=== PATIENT | male | born 1980 | race Hispanic/Latino ===

== ENCOUNTER 2021-06-27 14:17 | Emergency (ER) | payer SELFPAY ==
[2021-06-27] MEDS ORDERED: KETOROLAC 30 MG/ML INJ ONE (15:24)
--- NOTE | 2021-06-27 16:45 | RAD REPORT ---
EXAM DESCRIPTION: RAD - Shoulder Left 2 View - 06/27/2021 4:09 pm CLINICAL HISTORY: shoulder pain COMPARISON: No comparisons FINDINGS/IMPRESSION: No acute fracture. No malalignment. No significant focal degenerative changes.
--- NOTE | 2021-06-27 16:54 | ER ---
Nurse's Notes [facility] Name: Joesph Wall Jr Age: 40 yrs Sex: Male : 1980 Arrival Date: 06/27/2021 Time: 14:20 Bed 11 Private MD: Diagnosis: Sprain of shoulder joint Presentation: 06/27 14:53 Chief complaint: Patient states: I fell form the bed and landed on my left shoulder. I jb4 am having trouble raising my arm over my head. Coronavirus screen: At this time, the client does not indicate any symptoms associated with coronavirus-19. Ebola Screen: No symptoms or risks identified at this time. Initial Sepsis Screen: Does the patient meet any 2 criteria? HR > 90 bpm. Yes Does the patient have a suspected source of infection? No. Patient's initial sepsis screen is negative. Risk Assessment: Do you want to hurt yourself or someone else? Patient reports no desire to harm self or others. Onset of symptoms was June 27, 2021. Transition of care: patient was not received from another setting of care. 14:53 Method Of Arrival: Ambulatory jb4 14:53 Acuity: JOHN 4 jb4 Historical: - Allergies: 14:56 No Known Allergies; jb4 - Home Meds: 14:56 None [Active]; jb4 - PMHx: 14:56 None; jb4 - PSHx: 14:56 None; jb4 - Immunization history:: Adult Immunizations up to date, Client reports having NOT received the Covid vaccine. - Social history:: Smoking status: Patient reports the use of cigarette tobacco products, 1 pack per week. Screenin:17 Abuse screen: Denies threats or abuse. Nutritional screening: No deficits noted. jb4 Tuberculosis screening: No symptoms or risk factors identified. Fall Risk None identified. Assessment: 15:17 General: Appears in no apparent distress. uncomfortable, Behavior is calm, cooperative, jb4 appropriate for age. Pain: Complains of pain in left shoulder Pain does not radiate. Pain currently is 9 out of 10 on a pain scale. Quality of pain is described as aching, throbbing. Neuro: Level of Consciousness is awake, alert, obeys commands, Oriented to person, place, time, situation. Cardiovascular: Patient's skin is warm and dry. Respiratory: Airway is patent Respiratory effort is even, unlabored, Respiratory pattern is regular, symmetrical. GI: No signs and/or symptoms were reported involving the gastrointestinal system. : No signs and/or symptoms were reported regarding the genitourinary system. EENT: No signs and/or symptoms were reported regarding the EENT system. Derm: Skin is intact, Skin is pink, warm \T\ dry. Musculoskeletal: Circulation, motion, and sensation intact. Range of motion: limited in left shoulder. 16:02 Reassessment: Patient appears in no apparent distress at this time. Patient and/or jb4 family updated on plan of care and expected duration. Pain level reassessed. Patient is alert, oriented x 3, equal unlabored respirations, skin warm/dry/pink. Vital Signs: 14:53 BP 126 / 77; Pulse 93; Resp 16; Temp 98.4(TE); Pulse Ox 98% on R/A; Weight 68.04 kg jb4 (R); Height 5 ft. 9 in. (175.26 cm) (R); Pain 9/10; 14:53 Body Mass Index 22.15 (68.04 kg, 175.26 cm) jb4 ED Course: 14:20 Patient arrived in ED. am2 14:34 Jasbir Barclay PA is PHCP. [facility] 14:34 Jori Nicolas MD is Attending Physician. [facility] 14:56 Triage completed. jb4 14:56 Arm band placed on right wrist. jb4 15:17 Patient has correct armband on for positive identification. Bed in low position. Call [facility] light in reach. Side rails up X 1. 15:52 Angella Gillette RN is Primary Nurse. jl7 16:11 Shoulder Left (2 View) XRAY In Process Unspecified. EDMS 17:39 No provider procedures requiring assistance completed. Patient did not have IV access jl7 during this emergency room visit. Sling applied to left arm. Administered Medications: 15:27 Drug: Ketorolac 30 mg Route: IM; Site: right deltoid; jb4 16:00 Follow up: Response: No adverse reaction; Pain is decreased jl7 Outcome: 16:54 Discharge ordered by . jm 17:39 Discharged to home ambulatory, with family. jl7 17:39 Condition: stable 17:39 Discharge instructions given to patient, Instructed on discharge instructions, follow up and referral plans. medication usage, Demonstrated understanding of instructions, follow-up care, medications, Prescriptions given X 2. 17:43 Patient left the ED. jl7 Signatures: Dispatcher [employer] EDMS Jasbir Barclay PA PA jmm Bryson, James, RN RN jb4 Angella Gillette RN RN jl7 Sabine Raphael
--- NOTE | 2021-06-27 16:54 | EDPHYS ---
Physician Documentation [facility] Name: Joesph Wall Jr Age: 40 yrs Sex: Male : 1980 Arrival Date: 06/27/2021 Time: 14:20 Bed 11 Private MD: ED Physician Jori Nicolas Historical: - Allergies: 06/27 14:56 No Known Allergies; jb4 - Home Meds: 14:56 None [Active]; jb4 - PMHx: 14:56 None; jb4 - PSHx: 14:56 None; jb4 - Immunization history:: Adult Immunizations up to date, Client reports having NOT received the Covid vaccine. - Social history:: Smoking status: Patient reports the use of cigarette tobacco products, 1 pack per week. Vital Signs: 14:53 BP 126 / 77; Pulse 93; Resp 16; Temp 98.4(TE); Pulse Ox 98% on R/A; Weight 68.04 kg jb4 (R); Height 5 ft. 9 in. (175.26 cm) (R); Pain 9/10; 14:53 Body Mass Index 22.15 (68.04 kg, 175.26 cm) jb4 MDM: 15:02 Patient medically screened. [facility] 16:52 Data reviewed: vital signs, nurses notes. Counseling: I had a detailed discussion with barbara the patient and/or guardian regarding: the historical points, exam findings, and any diagnostic results supporting the discharge/admit diagnosis, radiology results, the need for outpatient follow up, to return to the emergency department if symptoms worsen or persist or if there are any questions or concerns that arise at home. 06/27 15:09 Order name: Shoulder Left (2 View) XRAY; Complete Time: 16:48 [facility] 06/27 16:48 Order name: Sling; Complete Time: 17:43 [facility] Administered Medications: 15:27 Drug: Ketorolac 30 mg Route: IM; Site: right deltoid; jb4 16:00 Follow up: Response: No adverse reaction; Pain is decreased jl7 Disposition Summary: 06/27/21 16:54 Discharge Ordered Location: Home [facility] Condition: Stable [facility] Diagnosis - Sprain of shoulder joint [facility] Followup: [facility] - With: Private Physician - When: 2 - 3 days - Reason: Recheck today's complaints, Continuance of care, Re-evaluation by your physician Discharge Instructions: - Discharge Summary Sheet jm - Shoulder Sprain [facility] Forms: - Medication Reconciliation Form [facility] - Thank You Letter yolanda - Antibiotic Education [facility] - Prescription Opioid Use [facility] Prescriptions: - Diclofenac Sodium 75 mg Oral Tablet Sustained Release - take 1 tablet by ORAL route 2 times per day; 30 tablet; Refills: 0, Product [facility] Selection Permitted - orphenadrine citrate 100 mg Oral Tablet Sustained Release - take 1 tablet by ORAL route 2 times per day As needed; 20 tablet; Refills: 0, [facility] Product Selection Permitted Addendum: 07/03/2021 07:57 Co-signature as Attending Physician, Jori Nicolas MD I agree with the assessment and c haque plan of care. Signatures: Dispatcher [employer] Jori Serna MD MD cha Mickail, Joel, PA PA jmm Bryson, James RN RN jb4 Angella Gillette RN jl7
[2021-06-27 17:54] VITALS: BP 126/77; TEMP 98.4; O2SAT 98
== END 2021-06-27 17:43 | disposition home or self-care (01) ==
LOC: ER 14:17
DX: S43.402A Unspecified sprain of left shoulder joint, initial encounter (principal); W06.XXXA Fall from bed, initial encounter; Z72.0 Tobacco use
CPT/HCPCS: 96372; 99284

== ENCOUNTER 2023-07-24 13:38 | Emergency (ER) | payer SELFPAY ==
--- OUTSIDE RECORDS SUMMARY | 2023-07-24 13:42 | XMS REPORT | Continuity of Care Document ---
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
[2023-07-24] MEDS ORDERED: KETOROLAC 30 MG/ML INJ ONE (14:13)
[2023-07-24 14:44] LABS: Absolute Basophils 0.1 K/uL (0-0.5); Absolute Eosinophils 0.2 K/uL (0-0.5); Absolute Monocytes 0.9 K/uL (0.1-1.3); Absolute Neutrophil 10.8 K/uL (1.8-8.0); Basophils % 0.5 % (0-1.3); Eosinophils % 1.4 % (0-4.4); Hematocrit 41.3 % (39.6-49.0); Hemoglobin 13.9 g/dL (13.6-17.9); Lymphocytes % 7.8 % (15.3-44.8); MCH 30.4 pg (27.0-35.0); MCHC 33.7 g/dL (32.0-36.0); MCV 90.1 fL (80-100); MPV 8.6 fL (7.6-11.3); Monocytes % 6.8 % (3.3-12.3); Neutrophils % 83.5 % (41.7-73.7); Platelets 265 thou/uL (152-406); RBC Red Blood Cell Count 4.58 M/uL (4.33-5.43); Red Cell Distribution Width 14.2 % (12.1-15.2)
[2023-07-24 15:00] LABS: ALT/SGPT 16 U/L (16-61); Albumin 3.5 g/dL (3.4-5.0); Albumin/Globulin Ratio 0.8 (1.1-1.8); Alkaline Phosphatase 94 U/L (45-117); Anion Gap 7.5 mEq/L (5.0-15.0); BUN Blood Urea Nitrogen 13 mg/dL (7-18); Bicarbonate 29 mEq/L (21-32); Bilirubin Total 0.8 mg/dL (0.2-1.0); Globulin 4.5 g/dL (2.3-3.5); Glomerular Filtration Rate 90 ml/min (=/>90); Glucose Level 100 mg/dL (74-106); Potassium 3.5 mEq/L (3.5-5.1); Sodium Level 137 mEq/L (136-145)
[2023-07-24 15:02] LABS: AST/SGOT < 10 U/L (15-37)
[2023-07-24] MEDS ORDERED: CLINDAMYCIN 900MG/D5W 900 MG/50 ML IVPB IV ONE (15:32)
--- NOTE | 2023-07-24 16:15 | RAD REPORT ---
EXAM DESCRIPTION: US - Extrem Venous W Compress Aniceto - 07/24/2023 3:33 pm CLINICAL HISTORY: Pain, swelling COMPARISON: None. TECHNIQUE: Real-time sonographic evaluation of the right lower extremity deep venous system was perf ormed. FINDINGS: Normal compressibility, flow augmentation, phasic flow and spontaneous flow is identified in the right lower extremity deep venous system. No intraluminal filling defects seen. IMPRESSION: No DVT in the right lower extremity.
--- NOTE | 2023-07-24 16:18 | RAD REPORT ---
EXAM DESCRIPTION: US - Lower Extremity Arterial Bilat - 07/24/2023 3:34 pm CLINICAL HISTORY: Pain;Swelling COMPARISON: No comparisons TECHNIQUE: Bilateral lower extremity arterial Doppler examination was performed with nishant palmer FINDINGS: Triphasic waveforms are seen throughout both lower extremity arterial systems to the level of the dorsalis pedis arteries. IMPRESSION: No evidence of significant peripheral vascular disease.
--- NOTE | 2023-07-24 16:41 | EDPHYS ---
Physician Documentation [facility] Name: Joesph Wall Age: 42 yrs Sex: Male : 1980 Arrival Date: 07/24/2023 Time: 13:38 Bed 15 Private MD: ED Physician Laron Humphreys HPI: 07/23 14:15 This 42 yrs old Male presents to ER via Ambulatory with complaints of Leg cp Swelling, Skin Problem, Feet Swelling. 14:15 the patient presents with a swollen area of the right foot and left foot. Description: cp erythematous, swollen, blistering of skin. Onset: The symptoms/episode began/occurred 3 day(s) ago. Possible cause(s): wears work boots 12 plus hours daily. Associated signs and symptoms: Pertinent negatives: fever. 14:15 Severity of symptoms: in the emergency department the symptoms are unchanged, despite cp home interventions. Historical: - Allergies: 13:52 No Known Allergies; iw - Home Meds: 13:52 None [Active]; iw - PMHx: 13:52 None; iw - PSHx: 13:52 None; iw - Immunization history:: Adult Immunizations not up to date. - Infectious Disease History:: Denies. - Social history:: Smoking status: Patient reports the use of cigarette tobacco products. ROS: 14:20 Constitutional: Negative for body aches, chills, fever, poor PO intake, cp 14:20 Eyes: Negative for injury, pain, redness, and discharge, cp 14:20 ENT: Negative for drainage from ear(s), ear pain, sore throat, difficulty swallowing, difficulty handling secretions, 14:20 Cardiovascular: Negative for chest pain, 14:20 Respiratory: Negative for cough, shortness of breath, wheezing, 14:20 Abdomen/GI: Negative for abdominal pain, nausea, vomiting, and diarrhea, 14:20 Skin: Positive for erythema, swelling, of the right foot and left foot, blistering of skin, 14:20 All other systems are negative, Exam: 14:25 Constitutional: The patient appears in no acute distress, alert, awake, non-toxic, well cp developed, well nourished, uncomfortable, 14:25 Head/Face: Normocephalic, atraumatic. cp 14:25 Eyes: Periorbital structures: appear normal, Conjunctiva: normal, no exudate, no injection, Sclera: no appreciated abnormality, Lids and lashes: appear normal, bilaterally, 14:25 ENT: External ear(s): are unremarkable, Nose: is normal, Mouth: Lips: moist, Oral mucosa: pink and intact, moist, Posterior pharynx: Airway: no evidence of obstruction, patent, 14:25 Chest/axilla: Inspection: normal, 14:25 Cardiovascular: Rate: normal, Rhythm: regular, 14:25 Respiratory: the patient does not display signs of respiratory distress, Respirations: normal, no use of accessory muscles, no retractions, labored breathing, is not present, Breath sounds: are clear throughout, no decreased breath sounds, no stridor, no wheezing, 14:25 Abdomen/GI: Inspection: abdomen appears normal, 14:25 Back: pain, is absent, ROM is normal, 14:25 Skin: cellulitis, that is moderate, on the right foot and left foot, noted erythema, blistering of skin between toes, swelling, enlarged tender groin lymph nodes, 14:25 Neuro: Orientation: to person, place \T\ time. Mentation: is normal, Motor: moves all fours, strength is normal, 14:35 ECG was reviewed by the Attending Physician. Vital Signs: 13:49 BP 123 / 81; Pulse 94; Resp 16; Temp 98.2; Pulse Ox 100% on R/A; Weight 70.31 kg; iw Height 5 ft. 8 in. ; Pain 8/10; 15:19 BP 115 / 70; Pulse 91; Resp 18; Pulse Ox 99% on R/A; rs5 17:01 BP 117 / 71; Pulse 88; Resp 18; Pulse Ox 99% on R/A; rs5 13:49 Body Mass Index 23.57 (70.31 kg, 172.72 cm) iw 13:49 Pain Scale: Adult iw MDM: 13:54 Patient medically screened. cp 15:00 Differential diagnosis: abscess, cellulitis, dvt, diabetes mellitus, PAD. 16:40 Data reviewed: vital signs, nurses notes, lab test result(s), EKG, radiologic studies, cp ultrasound, and as a result, I will discharge patient. 16:40 I considered the following discharge prescriptions or medication management in the emergency department Medications were administered in the Emergency Department. See MAR. Counseling: I had a detailed discussion with the patient and/or guardian regarding the historical points, exam findings, and any diagnostic results supporting the discharge/admit diagnosis, lab results, radiology results, the need for outpatient follow up, a family practitioner, to return to the emergency department if symptoms worsen or persist or if there are any questions or concerns that arise at home. Response to treatment: the patient's symptoms have mildly improved after treatment, and as a result, I will discharge patient. 07/23 14:08 Order name: CBC with Diff; Complete Time: 15:02 cp 07/23 15:02 Interpretation: Normal except: WBC 12.90; HENRRY% 83.5; LYM% 7.8; NEUT A 10.8. cp 07/23 14:08 Order name: CMP; Complete Time: 15:06 cp 07/23 15:06 Interpretation: Normal except. 07/23 14:08 Order name: Lactate w/ 2H reflex if indic.; Complete Time: 15:06 cp 07/23 15:06 Interpretation: Reviewed. 07/23 14:08 Order name: Wound Culture 07/23 14:38 Order name: Glucose, Ancillary Testing; Complete Time: 15:02 EDMS 07/23 14:08 Order name: US Extremity Venous W Compression Aniceto; Complete Time: 16:33 cp 07/23 16:34 Interpretation: Report reviewed. 07/23 14:08 Order name: US LE Arterial Bilateral; Complete Time: 16:33 cp 07/23 16:34 Interpretation: Report reviewed. 07/23 14:08 Order name: Accucheck; Complete Time: 14:35 cp 07/23 14:08 Order name: Cardiac monitoring; Complete Time: 14:35 cp 07/23 14:08 Order name: IV Saline Lock - Large Bore; Complete Time: 14:50 cp 12 14:08 Order name: Labs collected and sent; Complete Time: 14:50 cp 07/23 14:08 Order name: O2 Per Protocol; Complete Time: 14:50 cp 12 14:08 Order name: O2 Sat Monitoring; Complete Time: 14:50 cp 07/23 14:08 Order name: Vital Signs; Complete Time: 14:51 cp EC:35 Rate is 67 beats/min. Rhythm is regular. NE interval is normal. QRS interval is normal. cp QT interval is normal. T waves are Inverted in lead aVR. Interpreted by me. Reviewed by me. Administered Medications: 14:20 Drug: Ketorolac IVP 15 mg IVP once Route: IVP; Site: right antecubital; rs5 14:40 Follow up: Response: No adverse reaction; Pain is decreased rs5 15:20 Drug: Clindamycin IVPB 900 mg IVPB once over 30 mins; (mix in 50 mL) Route: IVPB; rs5 Infused Over: 30 mins; Site: right antecubital; 15:40 Follow up: Response: No adverse reaction rs5 15:52 Follow up: Response: No adverse reaction; IV Status: Completed infusion rs5 Disposition Summary: 07/24/23 16:41 Discharge Ordered Notes: Location: Home cp Problem: new cp Symptoms: have improved cp Condition: Stable cp Diagnosis - Cellulitis of right lower limb cp - Cellulitis of left lower limb cp Followup: cp - With: Private Physician - When: 2 - 3 days - Reason: Recheck today's complaints Discharge Instructions: - Discharge Summary Sheet cp - Cellulitis, Adult cp - Form - Excuse from Work, School, or Physical Activity cp Forms: - Medication Reconciliation Form cp - Antibiotic Education cp - Prescription Opioid Use cp - Patient Portal Instructions cp - Leadership Thank You Letter cp Prescriptions: - Clindamycin HCl 300 mg Oral Capsule - take 1 capsule ORAL route every 6 hours for 10 days; 40 capsule; Refills: 0, cp Product Selection Permitted - Clotrimazole 1 % Topical cream - Apply to affected area 1 application TOPICAL route every 12 hours for 7 days; cp 45 gram; Refills: 0, Product Selection Permitted - Ibuprofen 800 mg Oral Tablet - take 1 tablet ORAL route every 8 hours As needed take with food; 30 tablet; cp Refills: 0, Product Selection Permitted - Bactrim DS 800-160 mg Oral Tablet - take 1 tablet ORAL route every 12 hours for 10 days; 20 tablet; Refills: 0, cp Product Selection Permitted Signatures: Dispatcher [employer] Dianne Ash RN RN Jori Hays PA PA cp Tomás Londono RN RN rs5 Corrections: (The following items were deleted from the chart) 14:09 14:09 CBC+H.LAB.BRZ ordered. EDOK EDMS 14:09 14:09 COMPREHENSIVE METABOLIC PANEL+C.LAB.BRZ ordered. EDMS EDMS 14: 14:09 LACTATE+C.LAB.BRZ ordered. EDMS EDMS 14: 14:09 Wound Culture+BA.LAB.BRZ ordered. EDMS EDMS
--- NOTE | 2023-07-24 16:41 | ER ---
Nurse's Notes [facility] Name: Joesph Wall Age: 42 yrs Sex: Male : 1980 Arrival Date: 07/24/2023 Time: 13:38 Bed 15 Private MD: Diagnosis: Cellulitis of right lower limb;Cellulitis of left lower limb Presentation: 07/23 13:49 Chief complaint: Patient states: right foot has wounds and wounds between toes X 3 days iw , the toes have been purple since , also has the same issue on last three toes of left toe, I also have pain to yaw groin area and there are knots in the groin that are tender. Coronavirus screen: Client presents with at least one sign or symptom that may indicate coronavirus-19. At this time, the client does not indicate any symptoms associated with coronavirus-19. Ebola Screen: Patient negative for fever greater than or equal to 101.5 degrees Fahrenheit, and additional compatible Ebola Virus Disease symptoms Patient denies exposure to infectious person. Patient denies travel to an Ebola-affected area in the 21 days before illness onset. No symptoms or risks identified at this time. Initial Sepsis Screen: Does the patient meet any 2 criteria? No. Patient's initial sepsis screen is negative. Does the patient have a suspected source of infection?. Risk Assessment: Do you want to hurt yourself or someone else? Patient reports no desire to harm self or others. Onset of symptoms was July 21, 2023. 13:49 Method Of Arrival: Ambulatory iw 13:49 Acuity: JOHN 3 iw Historical: - Allergies: 13:52 No Known Allergies; iw - Home Meds: 13:52 None [Active]; iw - PMHx: 13:52 None; iw - PSHx: 13:52 None; iw - Immunization history:: Adult Immunizations not up to date. - Infectious Disease History:: Denies. - Social history:: Smoking status: Patient reports the use of cigarette tobacco products. Screenin:55 [facility] ED Fall Risk Assessment (Adult) History of falling in the last 3 months, rs5 including since admission No falls in past 3 months (0 pts) Confusion or Disorientation No (0 pts) Intoxicated or Sedated No (0 pts) Impaired Gait Yes (1 pt) Mobility Assist Device Used No (0 pt) Altered Elimination No (0 pt) Score/Fall Risk Level 0 - 2 = Low Risk Oriented to surroundings, Maintained a safe environment, Hourly rounding (assess needs \T\ fall precautionary measures) done. Abuse screen: Denies threats or abuse. Nutritional screening: No deficits noted. Tuberculosis screening: No symptoms or risk factors identified. Assessment: 13:55 General: Appears in no apparent distress. uncomfortable, Behavior is calm, cooperative. rs5 Pain: Complains of pain in feet bilat Pain currently is 7 out of 10 on a pain scale. Quality of pain is described as aching, Is continuous. Neuro: Level of Consciousness is awake, alert, obeys commands, Oriented to person, place, time, situation. Cardiovascular: Patient's skin is warm and dry. Rhythm is regular. Respiratory: Airway is patent Respiratory effort is even, unlabored, Respiratory pattern is regular, symmetrical. GI: Abdomen is round non-distended, Abd is soft and non tender X 4 quads. : No signs and/or symptoms were reported regarding the genitourinary system. 13:55 EENT: No signs and/or symptoms were reported regarding the EENT system. Derm: Skin is rs5 intact, Skin is pink, warm \T\ dry. multiple small wounds noted to bottom of feet bilat. Musculoskeletal: Range of motion: limited in feet bilat. 15:18 Reassessment: Patient and/or family updated on plan of care and expected duration. Pain rs5 level reassessed. Patient is alert, oriented x 3, equal unlabored respirations, skin warm/dry/pink. Patient states feeling better. Patient states symptoms have improved. 16:25 Reassessment: No changes from previously documented assessment. rs5 17:01 Reassessment: No changes from previously documented assessment. rs5 Vital Signs: 13:49 BP 123 / 81; Pulse 94; Resp 16; Temp 98.2; Pulse Ox 100% on R/A; Weight 70.31 kg; iw Height 5 ft. 8 in. ; Pain 8/10; 15:19 BP 115 / 70; Pulse 91; Resp 18; Pulse Ox 99% on R/A; rs5 17:01 BP 117 / 71; Pulse 88; Resp 18; Pulse Ox 99% on R/A; rs5 13:49 Body Mass Index 23.57 (70.31 kg, 172.72 cm) iw 13:49 Pain Scale: Adult iw ED Course: 13:43 Patient arrived in ED. im 13:43 Jori Abarca PA is PHCP. cp 13:43 Laron Humphreys MD is Attending Physician. cp 13:52 Triage completed. iw 13:53 Arm band placed on. iw 13:55 Patient has correct armband on for positive identification. Bed in low position. Call rs5 light in reach. Side rails up X2. 13:55 No provider procedures requiring assistance completed. rs5 14:11 Tomás Londono, BETHANY is Primary Nurse. rs5 15:34 US Extremity Venous W Compression Yaw In Process Unspecified. EDMS 15:36 US LE Arterial Bilateral In Process Unspecified. EDMS 17:05 IV discontinued, intact, bleeding controlled, No redness/swelling at site. Pressure rs5 dressing applied. Administered Medications: 14:20 Drug: Ketorolac IVP 15 mg IVP once Route: IVP; Site: right antecubital; rs5 14:40 Follow up: Response: No adverse reaction; Pain is decreased rs5 15:20 Drug: Clindamycin IVPB 900 mg IVPB once over 30 mins; (mix in 50 mL) Route: IVPB; rs5 Infused Over: 30 mins; Site: right antecubital; 15:40 Follow up: Response: No adverse reaction rs5 15:52 Follow up: Response: No adverse reaction; IV Status: Completed infusion rs5 Medication: 15:19 VIS not applicable for this client. rs5 Outcome: 16:41 Discharge ordered by MD. cp 17:05 Patient left the ED. rs5 17:05 Discharged to home via wheelchair, with family, rs5 17:05 Condition: stable 17:05 Discharge instructions given to patient, family, Instructed on discharge instructions, follow up and referral plans. medication usage, Demonstrated understanding of instructions, follow-up care, medications, Prescriptions given X 4, Signatures: Dispatcher [employer] Dianne Ash RN RN Jori Abarca PA PA cp Sotelo, Ricky, BETHANY RN rs5 Beth Herring im Corrections: (The following items were deleted from the chart) 14:10 13:49 BP 123 / 81; Pulse 94bpm; Resp 16bpm; Pulse Ox 100% RA; 70.31 kg; Height 5 ft. 8 iw in.; BMI: 23.5; Pain 8/10, Adult; iw 17:59 17:19 Patient left the ED. rs5 rs5
[2023-07-24 17:24] VITALS: TEMP 98.2
[2023-07-24 17:45] VITALS: BP 115/70; O2SAT 99
--- NOTE | 2023-07-25 13:19 | EKG ---
Test Date: 2023-07-24 Test Time: 14:28:57 Head Batcher: SANGEETHA MEASUREMENT RESULTS: Intervals: Rate: 67 [place]: 172 QRSD: 94 QT: 358 QTc: 378 [place]: P: 52 [place]: 172 QRS: 86 T: 66 INTERPRETIVE STATEMENTS: Normal sinus rhythm Normal ECG No previous ECG available for comparison Electronically Signed On 07-25-23 13:17:10 CDT by [place] [employer]
== END 2023-07-24 17:19 | disposition home or self-care (01) ==
LOC: ER 13:38
DX: L03.116 Cellulitis of left lower limb (principal); L03.115 Cellulitis of right lower limb
CPT/HCPCS: 36415; 80053; 82947; 83605; 85025; 87070; 87077; 87186; 87205; 93005; 93925; 93970; 96365; 96375; 99284